=== PATIENT | male | born 1985 | race African-American/Black ===

== ENCOUNTER 2022-08-24 03:01 | Emergency (ER) | payer MEDICAID, OTHER ==
[~2022-08-24] VITALS: Ht 190.5 cm; Wt 116.8 kg
[2022-08-24] MEDS ORDERED: MORPHINE SULFATE INJ 2 MG/ml SYRG IM ONE (04:30)
[2022-08-24] MEDS ORDERED: ONDANSETRON ODT 4 MG TAB PO ONE (04:30)
[2022-08-24] MEDS ORDERED: ACE3T PO (05:18)
[2022-08-24 05:33] VITALS: BP 127/79
== END 2022-08-24 05:37 | disposition home or self-care (01) ==
LOC: ER 03:01 → EDBD 03:01 → ER 05:37
DX: S20.211A Contusion of right front wall of thorax, initial encounter (principal); M54.2 Cervicalgia; E11.9 Type 2 diabetes mellitus without complications; I10 Essential (primary) hypertension; V43.52XA Car driver injured in collision with other type car in traffic accident, initial encounter; Y93.89 Activity, other specified; Y92.89 Other specified places as the place of occurrence of the external cause; Y99.8 Other external cause status
CPT/HCPCS: 70450; 71250; 72125; 74176; 82962; 96372; 99285; J2270; Q0162

== ENCOUNTER 2023-12-05 04:30 | Emergency (ER) | payer MEDICAID ==
[~2023-12-05] VITALS: Ht 188 cm; Wt 90.0 kg
[~2023-12-05 04:30] MED LIST: ACE3T PO
[2023-12-05 05:02] LABS: Basophils # (auto) 0.1 10 ^3/uL (0-0.2); Basophils % (auto) 1.2 % (0.0-2.0); Eosinophils # (auto) 0.1 10 ^3/uL (0-0.8); Eosinophils % (auto) 1.4 % (0.0-7.0); Hematocrit 35.9 % (41.0-53.0); Hemoglobin 12.9 g/dL (13.5-17.5); Mean Corpuscular Hemoglobin 32.4 pg (28.0-32.0); Mean Corpuscular Hgb Conc. 36.1 g/dL (32.0-36.0); Mean Corpuscular Volume 89.7 fL (80.0-100.0); Monocytes # (auto) 0.3 10 ^3/uL (0-1.3); Monocytes % (auto) 5.4 % (0.0-12.0); Neutrophils # (auto) 2.8 10 ^3/uL (1.6-8.6); Nucleated Red Blood Cells % 0.1 %; Red Cell Distribution Width 11.9 % (11.8-14.3); White Blood Cell 5.2 10^3/uL (4.4-10.8)
[2023-12-05 05:12] LABS: Anion Gap 8 (5-15); Calcium 9.1 mg/dL (8.7-10.4); Carbon Dioxide 22 mmol/L (20-30); Chloride 108 mmol/L (98-107); Potassium 3.5 mmol/L (3.5-5.1); Sodium 138 mmol/L (136-145)
[2023-12-05 05:17] LABS: Glucose 245 mg/dL (74-106)
[2023-12-05 05:18] LABS: Alkaline Phosphatase 78 U/L (46-116); BUN/Creatinine Ratio 11.2 (10.0-20.0); Blood Urea Nitrogen 12 mg/dL (9-23); INR 0.97 (0.9-1.15); Magnesium 1.7 mg/dL (1.6-2.6); Prothrombin Time 10.3 sec (9.3-11.8)
[2023-12-05 05:19] LABS: Albumin 3.9 g/dL (3.2-4.8); Aspartate Aminotransferase 9 U/L (13-40)
[2023-12-05 05:20] LABS: Bilirubin, Total 0.6 mg/dL (0.2-1.0); Total Protein 6.4 g/dL (5.7-8.2)
[2023-12-05] MEDS: SODIUM CHLORIDE 0.9% 1,000 ML IV ONE (05:27)
[2023-12-05 05:30] VITALS: PULSE 89; RESP 20; O2SAT 98
[2023-12-05 05:38] LABS: Alanine Aminotransferase 12 U/L (7-40)
[2023-12-05 08:21] VITALS: BP 148/87; PULSE 88; RESP 18; TEMP 97.9; O2SAT 98
== END 2023-12-05 08:22 | disposition home or self-care (01) ==
LOC: ER 04:30 → EDBD 04:30 → ER 08:22
DX: R07.2 Precordial pain (principal); R11.2 Nausea with vomiting, unspecified; F41.9 Anxiety disorder, unspecified
CPT/HCPCS: 36415; 71045; 80053; 83735; 83880; 84484; 85025; 85610; 85730; 93005; 96360; 99285; J7030